=== PATIENT | male | born 1940 | race Caucasian/White ===

== ENCOUNTER 2016-07-22 11:41 | Emergency (ER) | payer MEDICARE ==
[~2016-07-22] VITALS: Ht 177.8 cm; Wt 86.4 kg
[~2016-07-22 11:41] MED LIST: ASPI-628 PO; CODE118S2 PO; FINA5TAB9 PO; OLME20TA3 PO; OMPR20CCR PO; RED600CA2 PO; TERA2CAP4 PO; VARI1940 SQ
[2016-07-22 11:43] VITALS: BP 154/101; PULSE 96; RESP 10; O2SAT 96
--- NOTE | 2016-07-22 12:52 | ED.REPORT ---
HPI-Back Pain 40 and Over Date of Service July 22, 2016 ED Provider: Lucius Dang MD The patient is a 76 year old male with history of hypertension and spinal stenosis, who presents to the emergency department complaining of lower back pain that began to worsened 2 weeks ago. The pain radiates down his right leg. The pain initially started when he was driving to [place] for vacation. He was seen in a clinic in [place]. He had a Kenalog injection and was sent home on Tramadol and Prednisone. He reports no relief from this treatment. His pain has continued to worsen since onset. He has noticed numbness and weakness in the right leg. He has experienced lower back pain intermittently over the last 1.5 years. He had an MRI taken last year (see results below in the I&D section). His current symptoms are worse than previous episodes. He denies bladder incontinence, bowel incontinence, fever, chills or vomiting. Nursing Notes Stated Complaint: RT LEG PAIN Chief Complaint: Back Pain or Injury Nursing Notes Reviewed: Yes ([facility], meds not reconciled) Allergies: Coded Allergies: Penicillins (Verified Allergy, Intermediate, SWELLING, 08/23/14) Scheduled Aspirin (Aspir 81) 81 Mg Tablet.dr 81 MG PO DAILY Finasteride (Finasteride) 5 Mg Tablet 5 MG PO DAILY Gabapentin (Gabapentin) 300 Mg Capsule 300 MG PO BID Olmesartan (Benicar) 20 Mg Tablet 20 MG PO DAILY Omeprazole (Prilosec) 20 Mg Capcr 20 MG PO DAILY Promethazine/Codeine Syrup (Promethazine/Codeine Syrup) 5 Ml Syrup 5 ML PO HS Red Yeast Rice (Red Yeast Rice) 600 Mg Capsule 600 MG PO DAILY Terazosin (Terazosin) 2 Mg Capsule 2 MG PO HS Scheduled PRN Docusate Sodium (Colace) 100 Mg Capsule 200 MG PO DAILY PRN PRN For Constipation Hydrocodone-Acetaminophen 5-325 mg (Hydrocodone-Acetaminophen 5-325 mg) 1 Each Tablet 0.5-2 TABLET PO Q6H PRN PRN For Pain Miscellaneous Medications Zoster Vaccine Live/Pf (Zostavax Vial) 19,400 Unit Vial 19,400 UNIT SQ General Time Seen by MD: 12:51 Chief Complaint Back pain Hx Obtained From: Patient Arrived By: Walk-in Sudden in Onset?: No Onset Occurred: More than a week ago... (2 weeks) Symptom Duration: Since onset Location: : Perispinal lumbar Quality: Painful Radiation: : Right leg above knee Severity: Current: Moderate Severity: Maximum: Severe Recent Healthcare: No recent hospitalization, Recent doctor visit Similar Sx Previous: Yes Past Medical History Past Medical History Spinal Stenosis Hypertension History of diverticulosis and colon polyps History of sarcoidosis Reports: GERD Past Surgical History Colonoscopy 2014 Family History Noncontributory Smoking History Never Smoker Social History Other Social History: Local resident Ambulatory Status Independent Review of Systems Constitutional: Denies: Chills, Fever GI: Denies: Vomiting Musculoskeletal: Reports: Back pain, Extremity pain Neurologic: Reports: Focal weakness, Numbness, Problem walking, Denies: Bladder dysfunction, Bowel dysfunction Complete sys rev & neg: except as marked. Physical Exam Initial Vital Signs Vital Signs (First) Date Time Temp Pulse Resp B/P Pulse Ox O2 Delivery O2 Flow Rate FiO2 07/22/16 11:43 36.6 96 10 154/101 96 Room Air Initial VS: Reviewed Head / Eyes: Atraumatic, Normocephalic, PERRL ENT: Mucous membranes moist, Conjunctiva normal, No scleral icterus Neck: Supple, Non-tender, Full range of motion Lymphatic: No lymphadenopathy Extremities: Vascular intact, Neuro intact, No swelling, No tenderness Skin: Warm, Dry, No cyanosis Psychiatric: Mood/affect normal, Behavior normal, Normal thought content General/Constitutional: Awake, Alert Respiratory / Chest: Atraumatic, Breath sounds NL, Breath sounds = bilat, No respiratory distress, No rales, No rhonchi, No wheezing Cardiovascular: Heart rate NL, Regular rhythm, Heart sounds NL, No murmurs, No rubs, Peripheral circulation NL Abdomen: Atraumatic, Soft, Non-tender, No guarding, No rebound, No distention, No palpable mass, No pulsatile mass Back: Atraumatic, Non-tender Positive straight leg raise on the right. Neurologic: Oriented X3, Speech NL, No sensory deficits, Cerebellar NL, Memory NL Slight weakness to right lower extremity. Normal plantar flexion and dorsiflexion. Interpretation & Diagnostics Interpretation & Diagnostics: (09/05/2015) PROCEDURE: MRI LUMBAR SPINE WITHOUT CONTRAST IMPRESSION: 1. Plain films of the lumbar spine are recommended for numbering purposes prior to any lumbar spinal intervention. 2. Severe canal stenosis at L4-L5 secondary to disc and facet disease, as well as ligamentum flavum hypertrophy. Dictated by: Peter Ledezma M.D. on 09/05/2015 at 11:02 TODAY LUMBAR MRI IMPRESSION: 1. Multiple degenerative changes without appreciable interval detrimental progression compared to 09/05/15. 2. Multilevel spinal stenosis most severe at L5-S1, secondary to disc bulges and facet/ligament flavum arthropathy. 3. Multilevel foraminal narrowing most significant at L4-5. As also noticed this level there has been slight interval progression of right lateral recess compromise. Dictated by: Antonia Orellana M.D. on 07/22/2016 at 15:42 Re-Eval/Medical Decision Med Decision/Clinical Course This is a 76-year-old male history of spinal stenosis and some right-sided sciatica reports he has been traveling in a vehicle a fair bit recently recent weeks has had a dramatic worsening of his right-sided sciatica pain, some weakness. He has just returned airway gets his medical care here most the time to Dr. Askew and has an appointment with seen orthopedist on Tuesday for further evaluation, but just had worsening pain. He is artery seen recently the clinic in [place] and given tramadol and a steroid taper which she completed several days ago, but reports the medicine simply are not helping is in severe discomfort. He was advised to stop taking his ibuprofen once on the steroids so is done that-reports that really helped him the most in the past. He denies trauma, fevers, bowel or bladder dysfunction, and has no additional complaints. On exam is a well-appearing 76-year-old male. He does have positive straight leg test on the right, but has normal plantarflexion and dorsiflexion without weakness, he has not taken able lift his leg name place but reports is painful. It is no decreased sensation or teofilo definitive neurologic deficit. We will also 76-year-old male with acutely worsening sciatica is fairly severe. His last MRI was a little over a year ago revealed spinal stenosis. And his age, worsening symptoms and MRI was obtained today revealed no interval change. The patient is being treated empirically and conservatively received some hydrocodone which helped. He is being started on low-dose gabapentin 300 mg twice a day. He is being discharged with instructions to keep the appointment with his orthopedist this coming week. Return precautions reviewed. Source of Hx: Old records Re-Evaluation/Progress : Time of Eval: 15:54 Re-Evaluation/Progress Note: Rechecked the patient. Discussed MRI results, diagnosis, and plan for discharge. All questions were addressed. Differential Diagnosis: Positive: Sciatica, Negative: Abdominal aortic aneurysm, , Bowel obstruction, Cauda equina syndrome, Ectopic , Epidural abscess, Epidural hematoma, Musculoskeletal pain, Spinal mass Counseled Regarding: Diagnosis, Need for follow-up, When/why to return to ED Discharge & Departure Impression: Primary Impression: Sciatica of right side Additional Impression: Spinal stenosis Spinal region: lumbar Qualified Code: M48.06 - Spinal stenosis, lumbar region Disposition: Home Discharge Condition All VS Reviewed: Yes Condition: Stable Additional Instructions: 1. No interval change with her previous MRI last year was identified-this means are no findings to indicate a progression to need for surgical intervention. 2. Now that you have finished the steroids, it is okay for you to resume your ibuprofen. 3. Stop taking the tramadol. 4. For more severe pain I take hydrocodone/APAP 1/2 tab up to 2 tabs up to every 6 hours. NOTE: This medication contains a narcotic and causes some drowsiness as well as constipation. I do recommend taking a stool softener such as Colace 200 mg daily while taking the stronger pain medicine. Use sparingly. No driving for at least 4-6 hours after taking. 5. I also recommend starting the medicine gabapentin start at 300mg twice a day (this may be increased over the next several weeks) 6. Keep your appointment at [facility] on TuesdayJuly 26. Referrals: Patrick Miller MD (PCP) [facility] Attestation Portions of this note were transcribed by Jessica Morfin. I, Dr. Dang personally performed the history, physical exam and medical decision-making; I reviewed and confirmed the accuracy of the information in the transcribed note. Signed by: James Martinez, 07/22/2016 at 1630. copies to: Patrick Miller MD, Matthew F MD July 22, 2016 12:52 Jessica Morfin July 22, 2016 12:57
[2016-07-22] MEDS ORDERED: HYDROcodone-APAP 5-325 mg Tablet PO ONE (13:20)
[2016-07-22 15:11] VITALS: BP 133/76; PULSE 70; RESP 17; O2SAT 98
--- NOTE | 2016-07-22 15:48 | DRSVH ---
PROCEDURE: MRI LUMBAR SPINE WITHOUT CONTRAST ([id number]) INDICATIONS: R weakness, pain TECHNIQUE: Noncontrast sagittal T1 spin echo and T2 fast echo, sagittal STIR, axial T1 and T2 fast spin echo thr ough the lumbar spine. In cases with scoliosis, additional coronal T2 fast spin echo may be performe d. COMPARISON: [facility], MR, MR LUMBAR SPINE WO CON, 09/05/2015, 8:54. FINDINGS: Image quality: Excellent. Alignment and Curvature: There is normal bony alignment. There is suspected transitional anatomy hakeem ntified. However, in keeping with prior examination, lumbar like vertebral bodies are numbered one th rough 5. Bone Marrow: Marrow is of normal overall signal. There has moderate reactive endplate changes at L4- 5. No acute vertebral body compression fractures. Spinal Cord: Conus medullaris terminates at the T12 level. Visualized cord demonstrates normal sign al and size. Paraspinous Soft Tissues: No paravertebral masses. Discs: Moderate to severe desiccation is present at L4-5, mild/moderate throughout the remaining lumb ar spine. L1-L2: Minimal disc bulge without spinal stenosis or foraminal narrowing. Mild facet hypertrophy. No interval change. L2-L3: Minimal disc bulge with minimal spinal stenosis. No foraminal narrowing. Mild facet and ligame ntum flavum hypertrophy. No interval change. L3-L4: Mild disc bulge without spinal stenosis. Minimal right foraminal narrowing with facet and liga ment flavum hypertrophy. No significant interval change. L4-L5: Mild disc bulge including a right lateral foraminal component. There is compromise of the righ t lateral recess, slightly more prominent when compared to prior exam. Severe spinal stenosis is pres ent. Moderate bilateral foraminal narrowing with facet and ligamentum flavum hypertrophy. L5-S1: Minimal disc bulge with moderate spinal stenosis. Mild bilateral foraminal narrowing with face t and ligamentum flavum hypertrophy. IMPRESSION: 1. Multiple degenerative changes without appreciable interval detrimental progression compared to 09/04. 2. Multilevel spinal stenosis most severe at L5-S1, secondary to disc bulges and facet/ligament flavu m arthropathy. 3. Multilevel foraminal narrowing most significant at L4-5. As also noticed this level there has been slight interval progression of right lateral recess compromise. Dictated by: Antonia Orellana M.D. on 07/22/2016 at 15:42 Approved by: Antonia Orellana M.D. on 07/22/2016 at 15:47
[2016-07-22] MEDS ORDERED: HYDR-4003 PO (16:05)
[2016-07-22] MEDS ORDERED: GABA-502 PO (16:05)
[2016-07-22] MEDS ORDERED: DOCU-41 PO (16:05)
[2016-07-22 16:22] VITALS: BP 133/76; PULSE 70; RESP 17; O2SAT 98
== END 2016-07-22 16:10 | disposition home or self-care (01) ==
LOC: SED 11:41
DX: M54.31 Sciatica, right side (principal); M48.06 Spinal stenosis, lumbar region; I10 Essential (primary) hypertension; K21.9 Gastro-esophageal reflux disease without esophagitis; Z88.0 Allergy status to penicillin; Z79.82 Long term (current) use of aspirin

== ENCOUNTER 2016-08-05 08:07 | Emergency (ER) | payer MEDICARE ==
[~2016-08-05] VITALS: Ht 177.8 cm; Wt 85.0 kg
[~2016-08-05 08:07] MED LIST changes: +DOCU-41 PO; +GABA-502 PO; +HYDR-4003 PO
[2016-08-05 08:19] VITALS: BP 144/93; PULSE 85; RESP 14; O2SAT 96
== END 2016-08-05 09:04 | disposition left against medical advice (07) ==
LOC: SED 08:15
DX: Z53.21 Procedure and treatment not carried out due to patient leaving prior to being seen by health care provider (principal)